=== PATIENT | male | born 1950 | race Caucasian/White ===

== ENCOUNTER 2017-06-23 07:00 | Day surgery (SDC) | payer MEDICARE, OTHER ==
[2017-06-21 12:37] LABS: BASOPHILS % (AUTO) 0.5 % (0-1); EOSINOPHILS # (AUTO) 0.2 X10'3 (0-0.9); EOSINOPHILS % (AUTO) 2.1 % (0-6); HEMATOCRIT 40.9 % (42.0-52.0); HEMOGLOBIN 14.1 g/dl (14.0-17.9); LYMPHOCYTES # (AUTO) 1.8 X10'3 (1.1-4.8); LYMPHOCYTES % (AUTO) 23.6 % (21-51); MEAN CORPUSCULAR HEMOGLOBIN 30.9 PG (27.0-31.0); MEAN CORPUSCULAR HGB CONC 34.6 % (33.0-36.5); MEAN CORPUSCULAR VOLUME 89.3 FL (78-98); MEAN PLATELET VOLUME 8.3 FL (7.4-10.4); MONOCYTES # (AUTO) 0.4 X10'3 (0-0.9); MONOCYTES % (AUTO) 5.8 % (2-12); NEUTROPHILS # (AUTO) 5.1 X10'3 (1.8-7.7); PLATELET COUNT 242 X10'3 (140-440); RED BLOOD COUNT 4.58 X10'6 (4.70-6.10); RED CELL DISTRIBUTION WIDTH 14.2 % (11.5-14.5); WHITE BLOOD COUNT 7.5 X10'3 (4.5-11.0)
[2017-06-21 12:47] LABS: PARTIAL THROMBOPLASTIN TIME 25 SECONDS (22-32); PROTHROMBIN TIME 10.7 SECONDS (9.0-12.0)
[2017-06-21 12:59] LABS: ALANINE AMINOTRANSFERASE 53 U/L (12-78); ALBUMIN 3.8 G/DL (3.4-5.0); ALBUMIN/GLOBULIN RATIO 1.2 (1.1-1.5); ALKALINE PHOSPHATASE 73 IU/L (46-116); ANION GAP 8 (8-16); ASPARTATE AMINO TRANSFERASE 39 U/L (10-37); BLOOD UREA NITROGEN 19 MG/DL (7-18); BUN/CREATININE RATIO 18.6 (5.4-32.0); CALCIUM 9.1 MG/DL (8.5-10.1); CHLORIDE 104 MMOL/L (99-107); CREATININE 1.02 MG/DL (0.60-1.10); GLUCOSE 134 MG/DL (70-104); POTASSIUM 4.1 MMOL/L (3.5-5.1); SODIUM 138 MMOL/L (135-145); TOTAL CARBON DIOXIDE 26.3 MMOL/L (24-32); TOTAL PROTEIN 7.1 G/DL (6.4-8.2); eGFR 73 ML/MIN
[~2017-06-23] VITALS: Ht 195.6 cm; Wt 113.8 kg
[2017-06-23] VITALS (14 sets, daily range): BP systolic 98–136; BP diastolic 51–85
[~2017-06-23 07:00] MED LIST: ASPI-611 PO; ATOR40TA PO; HYDR-565 PO; LEVO75TA PO; LISI-600 PO
[2017-06-23] MEDS ORDERED: nitroGLYCERIN 0.4mg SUBLingual tab SL PRN ×2 (07:15→11:25)
[2017-06-23] MEDS ORDERED: diphenhydrAMINE 25mg capsule PO PRN (07:15)
[2017-06-23] MEDS ORDERED: normal saline 1000ml 1,000 ML IV SCH ×2 (07:15→11:25)
[2017-06-23] MEDS ORDERED: LORazepam 0.5 MG tablet PO PRN (07:15)
[2017-06-23] MEDS ORDERED: enalaprilat dihydrate 2.5mg/2ml vial IV PRN (07:15)
[2017-06-23] MEDS ORDERED: LIDOcaine 1% (10mg/ml) 2ml vial ONE (07:19)
[2017-06-23] MEDS ORDERED: ALLO100T PO (07:31)
[2017-06-23] MEDS ORDERED: CHOL10002 PO (07:31)
[2017-06-23] MEDS ORDERED: MAGN500C16 PO (07:31)
[2017-06-23] MEDS ORDERED: NITR0.4T51 SL (07:31)
[2017-06-23] MEDS ORDERED: fentaNYL/PF 50MCG/1 ML 2ML syringe ONE (09:37)
[2017-06-23] MEDS ORDERED: LIDOcaine 1%/PF (10mg/ml) 5ml vial ONE (09:37)
[2017-06-23] MEDS ORDERED: iohexol 350 MG/ML 50ML vial IV ONE (09:37)
[2017-06-23] MEDS ORDERED: midazolam 2 mg/2 ml injection ONE ×2 (09:37→10:26)
[2017-06-23] MEDS ORDERED: iohexol 350MG/ML 100ml bottle IV ONE (09:37)
[2017-06-23] MEDS ORDERED: proCHLORperazine 10 MG/2 ml inj ONE (10:13)
[2017-06-23] MEDS ORDERED: HYDROcodone/acetaminophen 10/325mg tab PO PRN (11:25)
[2017-06-23] MEDS ORDERED: proCHLORperazine 10 MG/2 ml inj IV PRN (11:25)
[2017-06-23] MEDS ORDERED: acetaminophen 325mg tablet PO PRN (11:25)
[2017-06-23] MEDS ORDERED: OXAZEpam 15mg capsule PO PRN (11:25)
[2017-06-23] MEDS ORDERED: HYDROcodone/acetaminophen 5mg/325mg tablet PO PRN (11:25)
[2017-06-23] MEDS ORDERED: ondansetron/PF 4mg/2ml inj IV PRN (11:25)
== END 2017-06-23 18:05 | disposition home or self-care (01) ==
LOC: SSTAY O 07:00
PROVIDERS: ATTEND Internal Medicine Cardiovascular Disease
DX: I25.10 Atherosclerotic heart disease of native coronary artery without angina pectoris (principal); E78.5 Hyperlipidemia, unspecified; I10 Essential (primary) hypertension; K21.9 Gastro-esophageal reflux disease without esophagitis; E03.9 Hypothyroidism, unspecified; Z96.651 Presence of right artificial knee joint; Z88.0 Allergy status to penicillin; Z79.82 Long term (current) use of aspirin; Z72.89 Other problems related to lifestyle; Z79.899 Other long term (current) drug therapy
CPT/HCPCS: 36415; 71046; 80053; 85025; 85610; 85730; 93458; 99152; 99153; A6257; C1760; C1769; J0780; J1644; J2001; J2250; J3010; J3490; J7030; Q0163; Q9967; A4620